=== PATIENT | male | born 1955 | race Caucasian/White ===

== ENCOUNTER 2020-05-01 06:36 | Outpatient (CLI) | payer OTHER ==
[2020-05-01 16:23] LABS: INR-International Normal Ratio 0.9; PTT 29.1 sec (22.9-36.1); Prothrombin Time 12.6 sec (12.0-14.7)
[2020-05-01 16:31] LABS: #Basophils 0.1 thou/uL (0.0-0.2); #Eosinphils 0.1 thou/uL (0.0-0.7); #Lymphocytes 2.4 thou/uL (1.20-3.40); #Monocytes 1.2 thou/uL (0.11-0.59); #Neutrophils 6.6 thou/uL (1.40-6.50); %Basophils 0.7 % (0.0-1.0); %Eosinophils 1.4 % (0.0-10.0); %Lymphocytes 22.9 % (21.0-51.0); %Monocytes 11.2 % (0.0-10.0); %Neutrophils 63.8 % (42.0-75.0); Hemoglobin 15.8 g/dL (14.0-18.0); Mean Corpuscular Hemoglobin 31.2 pg (27.0-31.0); Mean Corpuscular Volume 94.4 fL (78.0-98.0); Mean Platelet Volume 8.4 fL (7.4-10.4); Platelet Count 210 thou/uL (130-400); RBC Distribution Width 11.7 % (11.5-14.5); Red Blood Cell (RBC) Count 5.07 mill/uL (4.70-6.10); White Blood Cell (WBC) Count 10.3 thou/uL (4.8-10.8)
[2020-05-01 16:57] LABS: Anion Gap 13 mmol/L (10-20); BUN (Urea Nitrogen) 14 mg/dL (8.4-25.7); Calc. Creatinine Clearance 0 mL/min (70-130); Carbon Dioxide 29 mmol/L (23-31); Chloride 104 mmol/L (98-107); Estimated GFR-MDRD 87; Glucose 81 mg/dL (80-115); Potassium 4.9 mmol/L (3.5-5.1); Sodium 141 mmol/L (136-145)
[2020-05-01 17:05] LABS: Bilirubin Negative (Negative); Blood, Urine Large (Negative); Glucose, Urine (Dipstick) Negative (Negative); Ketone, Urine Negative (Negative); Leukocyte Moderate (Negative); Nitrite Negative (Negative); Protein, Urine (Dipstick) > or equal to 300 mg/dL (Neg-Trace); Specific Gravity, Urine 1.025 (1.005-1.030); Urobilinogen 0.2 mg/dL (Less than 2)
[2020-05-01 17:06] LABS: Clarity Turbid (Clear)
[2020-05-01 17:19] LABS: RBC/HPF Greater than 50 HPF (0-3); WBC/HPF Greater Than 50 HPF (0-3)
[2020-05-01 17:20] LABS: Bacteria/HPF 1+ HPF (None Seen); Squamous Epithelial None Seen HPF (0-3)
[2020-05-02 11:38] LABS: SARS-CoV-2 MS2 Positive; SARS-CoV-2 N Gene Negative; SARS-CoV-2 S Gene Negative; SARS-CoV-2 by NAA Not Detected (NotDetected); SARS-CoV-2 orf1ab Negative
--- NOTE | 2020-05-02 14:56 | EKG ---
Test Reason : PREOP Blood Pressure : / mmHG Vent. Rate : 066 BPM Atrial Rate : 066 BPM P-R Int : 212 ms QRS Dur : 090 ms QT Int : 382 ms P-R-T Axes : 072 -23 070 degrees QTc Int : 400 ms Sinus rhythm with 1st degree A-V block Low voltage QRS Borderline ECG No previous ECGs available Confirmed by NATIVIDAD CRONIN (2) on 05/02/2020 2:55:33 PM Referred By: Nat OLIVARES Confirmed By:NATIVIDAD CRONIN
== END 2020-05-01 06:37 | disposition home or self-care (01) ==
LOC: LABBT 06:36
PROVIDERS: ATTEND Urology
DX: Z01.818 Encounter for other preprocedural examination (principal); N40.1 Benign prostatic hyperplasia with lower urinary tract symptoms; R97.20 Elevated prostate specific antigen [PSA]; R33.8 Other retention of urine; R68.89 Other general symptoms and signs; Z20.828 Contact with and (suspected) exposure to other viral communicable diseases
CPT/HCPCS: 80048; 81001; 85025; 85610; 85730; 87077; 87086; 87635; 93005; 93010; U0003

== ENCOUNTER 2020-05-04 09:52 | Observation (INO) | payer OTHER ==
[2020-05-03 09:41] VITALS: BMI 25.0
[2020-05-04] MEDS ORDERED: Levofloxacin 500 mg/D5W 100 ml Premix Bag ONE (10:07)
[2020-05-04] MEDS ORDERED: Ondansetron PF 4 MG/2 ML Vial ONE (11:21)
[2020-05-04] MEDS ORDERED: EPHEDRINE 25 MG/5 ML SYRINGE ONE (11:21)
[2020-05-04] MEDS ORDERED: Lidocaine 1% PF 5 ML VIAL ONE (11:21)
[2020-05-04] MEDS ORDERED: Metoclopramide HCl 10 MG/2 ML VIAL ONE (11:21)
[2020-05-04] MEDS ORDERED: PROPOFOL 200 MG/20 ML VIAL ONE (11:21)
[2020-05-04] MEDS ORDERED: B & O ONE (11:46)
[2020-05-04] MEDS ORDERED: Fentanyl 100 MCG/2 ML VIAL ONE ×2 (11:56→13:05)
[2020-05-04] MEDS ORDERED: Promethazine HCl 25 MG/ML VIAL SLOW IVP PRN (14:45)
[2020-05-04] MEDS ORDERED: Ondansetron HCl/PF 4 MG/2 ML Vial IVP PRN (14:45)
[2020-05-04] MEDS ORDERED: Meperidine HCl/PF 25 MG/ML VIAL SLOW IVP PRN (14:45)
[2020-05-04] MEDS ORDERED: Promethazine HCl 25 MG/ML VIAL IM PRN (14:45)
[2020-05-04] MEDS ORDERED: Ketorolac Tromethamine 30 MG/ML VIAL IVP PRN (14:45)
[2020-05-04] MEDS ORDERED: traMADol HCl 50 MG TAB PO PRN (15:47)
[2020-05-04] MEDS ORDERED: Bisacodyl 10 MG SUPP PR PRN (15:47)
[2020-05-04] MEDS ORDERED: Oxybutynin 5 MG TAB PO PRN (15:47)
[2020-05-04] MEDS ORDERED: hydrALAZINE 20 MG/ML VIAL SLOW IVP PRN (15:47)
[2020-05-04] MEDS ORDERED: Phenazopyridine HCl 97.5 MG TABLET PO PRN (15:47)
[2020-05-04] MEDS ORDERED: Ondansetron PF 4 MG/2 ML Vial IVP PRN (15:47)
[2020-05-04] MEDS ORDERED: Morphine 2 MG/ML VIAL SLOW IVP PRN (15:47)
[2020-05-04] MEDS ORDERED: Zolpidem Tartrate 5 MG TAB PO PRN (15:47)
[2020-05-04] MEDS ORDERED: diphenhydrAMINE 25 MG CAP PO PRN (15:47)
[2020-05-04] MEDS ORDERED: Acetaminophen 500 MG TAB PO PRN (15:47)
[2020-05-04] MEDS ORDERED: Mag-Al 1200 mg/1200 mg/30 ML UDCUP PO PRN (15:47)
[2020-05-04] MEDS: Docusate 100 MG CAP PO SCH (20:50)
[2020-05-04] MEDS ORDERED: Atorvastatin Calcium 40 MG TAB PO SCH (21:00)
[2020-05-05] MEDS: Docusate 100 MG CAP PO SCH (07:56)
[2020-05-05 11:35] VITALS: BP 122/83
[2020-05-05] MEDS: FLU VACC QS2020-21(6MOS UP)/PF 60 MCG/0.5 ML SYRINGE IM ONE ×2 (13:40→14:20)
[2020-05-05 14:49] VITALS: TEMP 97.5
--- NOTE | 2020-05-08 13:23 | OP ---
DATE OF PROCEDURE: 05/04/2020 SERVICE: Urology. PREOPERATIVE DIAGNOSIS: BPH with urinary obstruction. POSTOPERATIVE DIAGNOSIS: BPH with urinary obstruction. PROCEDURE PERFORMED: Transurethral resection of the prostate along with transurethral vaporization of the prostate. BRIEF HISTORY: Mr. Pinto is a white male with BPH and significant urinary symptoms. His prostate was a little too large for UroLift. We discussed treating his prostate with a TURP instead. Risks and benefits of the procedure were discussed, and he has agreed to proceed forward. DESCRIPTION OF PROCEDURE: After identification of armband and verification of consent, the patient was brought back to the operating room. He underwent general anesthesia with an LMA. He was then placed in dorsal lithotomy position and prepped and draped in usual sterile fashion. After appropriate time-out, a lubricated 26-Bruneian resectoscope sheath with visual obturator was passed through the urethra into the patient's bladder. The visual obturator was then switched out for the bipolar prostate loop. Resection was initially started toward the bladder neck and resected circumferentially to the verumontanum. Resection was carried out until we were close to but not at the capsule of the prostate. Once there was an extremely wide channel, the prostate chips were evacuated and hemostasis was achieved. There were still some areas of bleeding and lumpy tissue, which was then smoothed out using the bipolar plasma button. This was used to smooth out the tissues, remove any remaining adenoma as well as open up some of the apical tissue, which had been left behind with the loop. Relaxing incisions were made at 5 and 7 o'clock with the button on the bladder neck and the intervening tissues vaporized down with the button electrode. Meticulous hemostasis was then performed circumferentially until no bleeding could be seen. Upon completion, the prostate was wide open without any evidence of active bleeding. The ureters were in the orthotopic location, unharmed. There were no additional prostate chips within the bladder. The resectoscope was then removed and a 22-Bruneian 3-way Clemente catheter with CBI was placed into the patient's bladder with 30 mL of sterile water then placed into the balloon. B and O suppository was placed in the patient's rectum and then his catheter secured with a StatLock. He was taken out of positioning, awakened, taken to PACU for recovery in stable condition. COMPLICATIONS: None. ESTIMATED BLOOD LOSS: Minimal. RETAINED TUBES AND DRAINS: A 22-Bruneian 3-way Clemente catheter on CBI. SPECIMENS: Prostate chips. DISPOSITION: The patient will be kept in the hospital overnight for CBI. We will then handle his care based on how he is doing tomorrow. Job ID: [id number]
--- NOTE | 2020-05-12 18:31 | DIS ---
DATE OF ADMISSION: 05/04/2020 DATE OF DISCHARGE: 05/05/2020 ADMITTING DIAGNOSIS: Benign prostatic hypertrophy with urinary retention. DISCHARGE DIAGNOSIS: Benign prostatic hypertrophy with urinary retention. PROCEDURE PERFORMED: While inpatient is transurethral resection of prostate. BRIEF HISTORY: Mr. Pinto is a 65 year old white male who came to see me for an elevated PSA. He was found to be in severe urinary retention. A Clemente catheter was placed and he was unable to perform CIC due to the size of his prostate. We elected to go for a TURP. His previous TRUS biopsies were entirely negative. The full H and P can be found in the scanned portion of the [employer] system. HOSPITAL COURSE: After TURP (please see operative note for details), the patient was kept in the hospital with CBI overnight. His CBI was stopped in the morning and the patient had his catheter taken out. He was able to void. He was then discharged home without event. DISPOSITION: Discharged to home. DISCHARGE CONDITION: Good. DISCHARGE MEDICATIONS: Please see medication reconciliation. DISCHARGE INSTRUCTIONS: Explained to the patient. Followup will be in approximately 1 to 2 weeks for postop check. Job ID: [id number] [id number]
== END 2020-05-05 14:51 | disposition home or self-care (01) ==
LOC: SDC 09:52 → SJJU 15:01
PROVIDERS: ADMIT Urology; ATTEND Urology
PROC: 0VT08ZZ Resection of Prostate, Via Natural or Artificial Opening Endoscopic (ICD-10-PCS; principal; 2020-05-04)
DX: N40.1 Benign prostatic hyperplasia with lower urinary tract symptoms (principal); N13.8 Other obstructive and reflux uropathy; R33.8 Other retention of urine; E78.5 Hyperlipidemia, unspecified; E78.00 Pure hypercholesterolemia, unspecified; Z87.891 Personal history of nicotine dependence; Z79.2 Long term (current) use of antibiotics; Z79.899 Other long term (current) drug therapy
CPT/HCPCS: 51798; 88305; 90471; 90662; 96374; G0008; G0378; J1956; J2405; J2704; J2765; J3010